=== PATIENT | female | born 1935 | race Caucasian/White ===

== ENCOUNTER 2018-12-22 11:44 | Day surgery (SDC) | payer MEDICARE, BC ==
[~2018-12-22] VITALS: Ht 152.4 cm; Wt 63.0 kg
--- NOTE | ~2018-12-22 | OP ---
PATIENT NAME: ÓSCAR SCHOFIELD MEDICAL RECORD: [id number] :35 LOCATION:[facility] ADMISSION DATE: SURGEON: MIYA DUKE MD DATE OF OPERATION: 12/22/2018 PREOPERATIVE DIAGNOSIS: Displaced fracture of the right third and fourth proximal phalanx. POSTOPERATIVE DIAGNOSIS: Displaced fracture of the right third and fourth proximal phalanx. PROCEDURE: Closed reduction and percutaneous pinning. SURGEON: Miya Duke MD ANESTHESIA: General. INTRAOPERATIVE COMPLICATIONS: None. SUMMARY OF PATHOLOGIC FINDINGS: Consistent with preoperative radiographs, the patient had grossly spaced proximal phalangeal base fractures. These were reduced and pinned in place with 0.045 K-wires. Final radiographs of the reduction were submitted for radiologist's review. OPERATIVE SUMMARY IN DETAIL: After obtaining the appropriate preoperative orthopedic surgery consent as well as anesthetic consultation, evaluation, and clearance, the patient was brought to the operating room and placed on the operating table in the supine position. After general laryngeal mask was administered, tourniquet was placed about the proximal aspect of the patient's right upper extremity. Note, it was not used during this case. The right upper extremity was then prepped and draped in routine sterile fashion. Under direct fluoroscopic guidance, reduction maneuver of both these fractures was performed, resulted in near anatomic adventist. These were then cross pinned from proximally to distally, giving the very proximal aspect of the fractures. Final radiographs were again taken in triplicate i.e., AP, lateral, and oblique and submitted for radiologist's review. K-wires were curled, pinned, and covered with Jurgan balls. Sterile dressings were applied. Volar splint was applied. The patient was awakened and taken to the recovery room in stable condition. All final needle and sponge counts were correct. TRANSINT:[id number] Voice Confirmation ID: [id number] DOCUMENT ID: [id number] MIYA DUKE MD CC: [id number] DICTATION DATE: 12/26/18911 AIRLINE TICKET AGENT: 12/26/18 1223 [facility] 12/22/18 [place] [id number] [place] [id number]
[2018-12-22 12:21] LABS: ANION GAP 12.5 mmol/L (8-16); APTT 28.5 SECONDS (22.8-39.4); CALCIUM 8.6 mg/dL (8.5-10.1); CARBON DIOXIDE 27.9 mmol/L (21.0-32.0); CREATININE - SERUM 1.7 mg/dL (0.6-1.3); INR 1.07 (0.85-1.17); POTASSIUM - SERUM 4.4 mmol/L (3.5-5.1); PROTIME 13.4 SECONDS (11.6-15.0)
[2018-12-22 12:32] LABS: HEMATOCRIT 28.6 % (36.0-48.0); HEMOGLOBIN 9.7 g/dL (12-16); MCH 33.9 pg (26.0-34.0); MCHC 33.9 g/dL (31.0-37.0); MEAN PLATELET VOLUME 10.1 fL (7.4-10.4); RBC 2.86 10x6/uL (4.00-5.40); RDW 18.9 % (11.5-14.5); WBC 2.3 10x3/uL (4.8-10.8)
[2018-12-22 12:38] LABS: PLATELET COUNT 95 10x3/uL (130-400)
[2018-12-22 12:55] LABS: BASOPHILS 1 % (0-2); LYMPHOCYTES 59 % (15-50); MONOCYTES 5 % (2-11); NEUTROPHILS 35 % (40-80); PLATELET ESTIMATE DECREASED
[2018-12-22] MEDS ORDERED: AROMASIN25 MG PO (13:42)
[2018-12-22] MEDS ORDERED: COREG25 MG PO (13:42)
[2018-12-22] MEDS ORDERED: ASPIRIN325 MG PO (13:42)
[2018-12-22] MEDS ORDERED: CELEXA40 MG PO (13:43)
[2018-12-22] MEDS ORDERED: BENTYL10 MG PO (13:45)
[2018-12-22] MEDS ORDERED: PROCHLORPERAZ5 MG/M1 PO (13:45)
[2018-12-22] MEDS ORDERED: PEPCID AC20 MG PO (13:46)
[2018-12-22] MEDS ORDERED: IBGARD PO (13:47)
[2018-12-22] MEDS ORDERED: LISINOPRIL40 MG PO (13:48)
[2018-12-22] MEDS ORDERED: LIPITOR40 MG PO (13:48)
[2018-12-22] MEDS ORDERED: OXYBUTYNIN CHLOR5 M1 PO (13:49)
[2018-12-22] MEDS ORDERED: LOMOTIL 2.5-0.1 EAC1 PO (13:49)
[2018-12-22] MEDS ORDERED: LYRICA75 MG PO (13:49)
[2018-12-22] MEDS ORDERED: PLAVIX75 MG PO (13:50)
[2018-12-22 13:54] VITALS: BP 159/68; Ht 152.4 cm; Wt 63.0 kg
[2018-12-22] MEDS ORDERED: HYDROCODON-ACE1 EA10 PO (16:29)
== END 2018-12-22 18:35 | disposition home or self-care (01) ==
LOC: D.PAN 11:44 → D.OPS 14:00 → D.PAN 18:35
PROVIDERS: Anesthesiology; ATTEND Orthopaedic Surgery
DX: S62.612A Displaced fracture of proximal phalanx of right middle finger, initial encounter for closed fracture (principal); S62.614A Displaced fracture of proximal phalanx of right ring finger, initial encounter for closed fracture; X58.XXXA Exposure to other specified factors, initial encounter; Z01.812 Encounter for preprocedural laboratory examination